=== PATIENT | male | born 1960 | race Hispanic/Latino ===

== ENCOUNTER 2017-01-20 07:03 | Day surgery (SDC) | payer OTHER ==
[2017-01-16 13:31] VITALS: BMI 34.0
--- NOTE | 2017-01-18 07:18 | HP ---
REASON FOR ADMISSION: Elective cardiac cath, possible angioplasty, abnormal stress test, preop for back surgery. BRIEF CLINICAL HISTORY: This is a 56-year-old male with past medical history of diabetes, hypertension, hyperlipidemia, obesity, coronary artery disease. He is status post PTCA after non-STEMI in 07/2005 after that multiple tests are normal. Recently, the patient had a stress test for preop evaluation for back surgery and found to be abnormal. The patient is scheduled for elective cardiac cath, possible angioplasty. PAST MEDICAL HISTORY: Significant for diabetes, hypertension, hyperlipidemia. PREVIOUS CARDIAC WORKUP: As follows. The patient has stress test on 01/13/2017, partial reversible defect, inferior defect, which shows ischemia, ejection fraction of 56% dated 01/13/2017, done in [facility]. The patient had echocardiography on 01/18/2017 that showed ejection fraction of 55%-60%, trace MR, trace TR. CURRENT MEDICATIONS: The patient is taking oxycodone two tablets daily, hydrochlorothiazide, amlodipine, Januvia, metoprolol, metformin, losartan, levothyroxine, glipizide, Dexilant, vitamin D and atorvastatin. REVIEW OF SYSTEMS: As per HPI. ALLERGIES: NO KNOWN DRUG ALLERGIES. PHYSICAL EXAMINATION: As follows: VITAL SIGNS: Height of the patient is 5 feet and 8 inches, weight is 224 pounds, body mass index is 34.1 kg/m2. HEENT: PERRLA intact. NECK: Supple. No carotid bruits or thyromegaly. CHEST: Clear to auscultation. HEART: S1 and S2 regular. ABDOMEN: Soft. EXTREMITIES: Clubbing and cyanosis negative. LABORATORY DATA: Blood workup is pending. IMPRESSION: Abnormal stress test, inferior defect ischemia, diabetes, hypertension, hyperlipidemia, obesity, history of coronary artery disease, status post percutaneous transluminal coronary angioplasty with stent deployed in 07/2005, Cypher drug-eluting stent. RECOMMENDATIONS: We will do cardiac catheterization, basic blood workup is remained stable. If the blood workup is within normal limits, we will proceed with cardiac catheterization. We will load with aspirin, Plavix. Further recommendation after the cardiac catheterization. Thank you for providing us the opportunity in taking care of the patient, Mohit Craig. We will follow with you. Blair Green MD
[2017-01-20 07:37] LABS: BASO # 0.01 K/mm3 (0.0-2.0); BASO % 0.2 % (0.0-3.0); EOS # 0.2 (0.0-0.7); EOS % 2.8 % (1.5-5.0); GRAN # 3.85 (1.4-6.5); GRAN % 63.4 % (50.0-68.0); LYMPH # 1.4 (1.2-3.4); LYMPH % 23.7 % (22.0-35.0); MEAN CELL VOLUME 81.8 fl (80.0-105.0); MEAN CORPUSCULAR HEMOGLOBIN 28.2 pg (25.0-35.0); MEAN CORPUSCULAR HGB CONC 34.4 g/dl (31.0-37.0); MEAN PLATELET VOLUME 9.6 fl (7.0-11.0); MONO # 0.6 (0.1-0.6); MONO % 9.9 % (1.0-6.0); RED CELL DISTRIBUTION WIDTH 14.1 % (11.5-14.5); WHITE BLOOD COUNT 6.1 10^3/ul (4.5-11.0)
[2017-01-20 07:47] LABS: INR 0.95 (0.93-1.08); PARTIAL THROMBOPLASTIN TIME 25.4 Seconds (23.7-30.8)
[2017-01-20 07:50] LABS: BLOOD UREA NITROGEN 18 mg/dL (7-21); CALCIUM 9.2 mg/dL (8.4-10.5); CARBON DIOXIDE 30 mmol/L (21-33); CHLORIDE 103 mmol/L (98-107); CHOLESTEROL 117 mg/dL (130-200); GFR AFRICAN-AMERICAN > 60; GLUCOSE,RANDOM 176 mg/dL (70-110); POTASSIUM 3.7 mmol/L (3.6-5.0); SODIUM 142 mmol/L (132-148)
[2017-01-20 08:04] VITALS: RESP 18; TEMP 98.5; O2SAT 96
[2017-01-20] MEDS ORDERED: Lidocaine 2% Inj (20ml) ONE (08:50)
[2017-01-20] MEDS ORDERED: Midazolam 2 MG/2 ML VIAL ONE ×2 (08:51→11:00)
[2017-01-20] MEDS ORDERED: Iodixanol 320 MG/ML 200 ML BOTTLE IV ONE (08:52)
[2017-01-20] MEDS ORDERED: Nitroglycerin 50mg in D5W 50 MG/250 ML BOTTLE IV ONE (08:52)
[2017-01-20] MEDS ORDERED: Eptifibatide 20 mg/10mL Inj IVP ONE (11:23)
[2017-01-20] MEDS ORDERED: Oxycodone/Acetaminophen 5/325 mg Tab PO PRN (12:11)
[2017-01-20] MEDS ORDERED: Sodium Chloride 0.9% 1,000 ML IV SCH (12:15)
--- NOTE | 2017-01-20 14:47 | CARD ---
APPROVED REPORT EKG Measurement Heart [id number] <Conclusion> Normal sinus rhythm Normal ECG
--- NOTE | 2017-01-20 15:05 | CARD ---
APPROVED REPORT EKG Measurement Heart [id number] <Conclusion> Normal sinus rhythm Normal ECG
--- NOTE | 2017-01-20 16:28 | CARD ---
APPROVED REPORT Procedure(s) performed: Left Heart Catheterization PTCA with Stenting of Proximal Circumflex with BMS HISTORY The patient is a 56 year-old male with a history of : most recent EF: 56%. (EF Method: RADIONUCLIDE), diabetes mellitus with oral treatment , previous diagnostic cath, previous PCI (The PCI date was 07/13/2005), hypertension , dyslipidemia , Pre-op for back surgery abnormal stress test. INDICATION The indication(s) include : positive stress test. CASE TECHNIQUE The patient was brought electively to the Cardiac Catheterization Laboratory in a fasting state and was prepped and draped in a sterile manner. The left wrist was infiltrated with 2% Lidocaine subcutaneous anesthesia. A 6 Fr Glidesheath (Radial) sheath was inserted into the left brachial artery without difficulty. Coronary angiography was performed using coronary diagnostic catheters. The left coronary system was accessed and visualized with a Diagnostic ,5 Fr JL 4 catheter. The right coronary system was accessed and visualized with a Diagnostic ,6 Fr WRP catheter. The left ventricle was accessed and visualized with a 5 Fr JR 4 catheter. Left ventricular/Aortic Valve gradient assessed on pullback. Left ventriculogram was performed in MUELLER projection. The patient tolerated the procedure well and there were no complications associated with the procedure. Vessel Analysis The patient's coronary anatomy is right dominant. The left main coronary artery is a size vessel two separate ostium for LAd andcircumflex. The left anterior descending artery is a medium size vessel with diffuse calcification noted throughout this vessel and without significant stenosis. There is a 50% stenosis in the mid segment. Patent stents noted in Mid and proximal LAD. The first diagonal branch is a medium size vessel with diffuse calcification noted throughout this vessel and without significant stenosis. The circumflex artery is a large size vessel with diffuse calcification noted throughout this vessel and with significant stenosis. There is a 90% stenosis in the proximal to mid segment. The first obtuse marginal branch is a large size vessel with diffuse calcification noted throughout this vessel and without significant stenosis. The right coronary artery is a large size vessel with diffuse calcification noted throughout this vessel and without significant stenosis. Superoir take off difficult to engage The right posterior descending artery is a large size vessel with diffuse calcification noted throughout this vessel and without significant stenosis. The right posterolateral branch is a medium size vessel with diffuse calcification noted throughout this vessel and without significant stenosis. Left Ventricle The left ventricle is normal in size with normal contractility. There was no cardiomyopathy. The left ventricular ejection fraction is estimated to be 65%. The left ventricular end diastolic pressure is 20 mmHg. There was no gradient across the aortic valve upon pullback. PCI Technique Lesion Anticoagulation was achieved with Heparin. Percutaneous coronary intervention was performed on the mid circumflex artery segment. The lesion stenosis prior to intervention was 90% with ELEAZAR 2 flow. A 6 Fr XB 3.5 Guide Catheter was used to engage the ostium. A 0.014 x 182 cm Luge Interventional Guidewire was used to cross the lesion. BALLOON DILATION A Balloon catheter 2.5 x 10 mm Sprinter RX was inserted and inflated up to 8.00atm for 12seconds. STENT DEPLOYMENT A bare metal stent 3.5 x 18 mm Vision BMS was inserted and inflated up to 12.00atm for 10seconds. Final angiography reveals 0 % stenosis with ELEAZAR 3 flow. Conclusion Critical disease in Proximal Circumflex 90% stenosis Patent previous stents in Oproximal and Mid LAD. Successful PTCA with BMS of Proxmal Cx. ( BMS used pt needs back surgery JAZZY). Preserved LV FX. EF-65%, EDP-15 mmof hg. Recommendations Aggressive Medical TherapyCardiac Risk Reduction Program Weight Loss Reduction Program ASA and Plavix for two weeks, then DC Plavix and pt can go for Back surgery in third week. CC; Issa Markham MD.
[2017-01-20] MEDS ORDERED: Insulin Reg-LOW-Coverage SC SCH (16:30)
[2017-01-20] MEDS ORDERED: GlipiZIDE 10 mg SR Tab PO SCH (18:00)
[2017-01-20] MEDS ORDERED: Non Formulary Medication (Metoprolol Tartrate [Lopressor] 100 MG) PO SCH (18:00)
[2017-01-20 19:01] LABS: BASO # 0.01 K/mm3 (0.0-2.0); BASO % 0.2 % (0.0-3.0); EOS # 0.1 (0.0-0.7); EOS % 2.2 % (1.5-5.0); GRAN # 3.84 (1.4-6.5); GRAN % 65.6 % (50.0-68.0); HEMATOCRIT 33.3 % (42.0-52.0); LYMPH # 1.3 (1.2-3.4); LYMPH % 22.4 % (22.0-35.0); MEAN CELL VOLUME 82.2 fl (80.0-105.0); MEAN CORPUSCULAR HEMOGLOBIN 28.4 pg (25.0-35.0); MEAN CORPUSCULAR HGB CONC 34.5 g/dl (31.0-37.0); MEAN PLATELET VOLUME 9.3 fl (7.0-11.0); MONO # 0.6 (0.1-0.6); MONO % 9.6 % (1.0-6.0); RED CELL DISTRIBUTION WIDTH 14.1 % (11.5-14.5); WHITE BLOOD COUNT 5.9 10^3/ul (4.5-11.0)
[2017-01-20 19:02] VITALS: BP 158/62; PULSE 75
[2017-01-20 19:14] LABS: BLOOD UREA NITROGEN 16 mg/dL (7-21); CALCIUM 8.6 mg/dL (8.4-10.5); CARBON DIOXIDE 27 mmol/L (21-33); CHLORIDE 103 mmol/L (98-107); GFR AFRICAN-AMERICAN > 60; GLUCOSE,RANDOM 201 mg/dL (70-110); POTASSIUM 3.7 mmol/L (3.6-5.0); SODIUM 139 mmol/L (132-148)
[2017-01-21] MEDS ORDERED: Levothyroxine 200 MCG TAB PO SCH (10:00)
[2017-01-21] MEDS ORDERED: DEXLANSOPRAZOLE 30 MG PO SCH (10:00)
[2017-01-21] MEDS ORDERED: Pantoprazole 40 mg EC Tab PO SCH (10:00)
== END 2017-01-20 22:28 | disposition home or self-care (01) ==
LOC: CATH 07:03 → 2RSO 12:18 → CATH 22:28
PROVIDERS: ATTEND Internal Medicine Cardiovascular Disease
DX: I25.10 Atherosclerotic heart disease of native coronary artery without angina pectoris (principal); E78.00 Pure hypercholesterolemia, unspecified; I10 Essential (primary) hypertension; I25.2 Old myocardial infarction; E11.9 Type 2 diabetes mellitus without complications; E66.9 Obesity, unspecified; Z68.34 Body mass index [BMI] 34.0-34.9, adult; Z95.5 Presence of coronary angioplasty implant and graft; Z79.84 Long term (current) use of oral hypoglycemic drugs
CPT/HCPCS: 36415; 80048; 80061; 85025; 85610; 85730; 86850; 86900; 92928; 93005; 93458; 93567; 99152; 99153; C1725; C1769 ×2; C1876; C1887 ×4; J1327; J1644 ×2; J2250; J3010; J7030; J7040